=== PATIENT | female | born 1950 | race Caucasian/White ===

== ENCOUNTER → 2020-06-21 11:42 | Outpatient (CLI) | payer OTHER, SELFPAY ==
--- NOTE | 2020-06-21 | DI.MRI.S_ITS ---
PROCEDURE: MR SHOULDER LT WO CON INDICATIONS: Adhesive capsulitis of left shoulder TECHNIQUE: Noncontrast oblique coronal T2 fast spin echo with fat saturation, oblique sagittal T1 spin echo and T2 fast spin echo with fat saturation, axial T1 spin echo and T2 fast spin echo with fat saturation through the shoulder. COMPARISON: None. FINDINGS: Image quality: Excellent. Rotator cuff: There is mild fluid signal intensity within the mid and posterior aspects of the supraspinatus tendon at the humeral insertion site involving the bursal surface. The supraspinatus, infraspinatus, and subscapularis tendons otherwise appear intact throughout. Sagittal images demonstrate no muscle atrophy. Bones and bursae: No bone marrow contusions or fractures. A few scattered subchondral cysts within the glenoid. Moderate acromioclavicular joint degeneration. The acromion demonstrates conventional anatomy, without an os acromiale. No pathologic subacromial-subdeltoid or subcoracoid bursal fluid is present. Capsule and soft tissues: In the absence of intra-articular contrast, the labrum and glenohumeral ligaments appear intact. The long head of the biceps tendon demonstrates normal location and morphology. The rotator interval appears normal, without fibrosis. The coracohumeral ligament is normal in thickness. IMPRESSION: 1. Low-grade partial-thickness bursal surface tearing of the mid and posterior supraspinatus tendon. No full-thickness rotator cuff tear. 2. Acromioclavicular joint osteoarthritis. Dictated by: Sabra Parra M.D. on 06/21/2020 at 12:49 Approved by: Sabra Parra M.D. on 06/21/2020 at 13:35
== END ==
PROVIDERS: PCP Nurse Practitioner; Referring Provider Nurse Practitioner; Visit Provider Orthopaedic Surgery
DX: M75.02 Adhesive capsulitis of left shoulder (principal); M75.112 Incomplete rotator cuff tear or rupture of left shoulder, not specified as traumatic; M67.922 Unspecified disorder of synovium and tendon, left upper arm; M19.012 Primary osteoarthritis, left shoulder
CPT/HCPCS: 73221